=== PATIENT | female | born 1995 | race Caucasian/White ===

== ENCOUNTER 2016-11-29 17:51 | Emergency (ER) | payer SELFPAY ==
[~2016-11-29] VITALS: Ht 162.6 cm; Wt 95.5 kg
[~2016-11-29 17:51] MED LIST: IBUP-1542 PO; PRENAT PO
[2016-11-29 19:39] VITALS: Ht 162.6 cm; Wt 95.5 kg
== END 2016-11-29 21:58 | disposition left against medical advice (07) ==
LOC: FTE 17:51
DX: Z53.21 Procedure and treatment not carried out due to patient leaving prior to being seen by health care provider (principal)

== ENCOUNTER 2017-11-29 23:54 | Emergency (ER) | END 2017-11-30 04:34 | disposition left against medical advice (07) ==